=== PATIENT | female | born 1945 | race Caucasian/White ===

== ENCOUNTER 2021-07-01 18:17 | Inpatient (IN) | payer OTHER ==
[~2021-07-01] VITALS: Ht 149.9 cm; Wt 52.2 kg
[2021-07-01] MEDS ORDERED: GLIMEPIRIDE1 MG (19:02)
[2021-07-01] MEDS ORDERED: LOSARTAN POTASS25 MG (19:02)
--- NOTE | 2021-07-01 19:09 | NUR ---
PACIENTE FEMENINA, ALERTA Y ORIENTADA. REFIERE DOLOR EN ESPALDA BAJA DESDE [place]WRENCE. QUE SE IRRADIA HACIA AMBAS PIERNAS. PACIENTE REFIERE CARMONA ESTADO CON FIEBRE DESDE [place]WRENCE. SE MIDE S/V. TEMP:99.5 AL MOMENTO DEL TRIAGE. S EUBICA EN MIRELLA DE ESPERA.
--- NOTE | 2021-07-01 19:55 | NUR ---
SE EJECUTA ORDEN MEDICA EN SALDANA TOTALIDAD PACIENTE AL MOMENTO SE MANTIENE EN EPSERA DE RESULTADOS DE LABORATORIO Y ESPERA DE REALIZAR CT.
--- NOTE | 2021-07-01 19:57 | NUR ---
SE REALIZAN MUESTRAS DE BARRY POR ORDEN MEDICA Y SE ORIENTA A PACIENTE SOBRE PROCEDIMIENTO SE REALIZA ADMINISTRACION DE MEDICAMENTOS Y SE ORIENTA A PACIENTE SOBRE USO Y EFECTO.
--- NOTE | 2021-07-01 20:53 | NUR ---
SE REALIZA ADMIISTRACION DE MEDICAMNETOS POR ORDEN MEIDCA, SE ORIENTA A PACIENTE Y FAMILIAR SOBRE USO Y EFECOTS DE LOS MEDICAMENTOS A SER ADMINISTRADO .
--- NOTE | 2021-07-01 23:26 | NUR ---
PACIENTE ALERTA Y ORIENTADA X3. EN YUAN CON BARANDAS ELEVADAS. IV FLUID PATENTE Y NAYAN DE EDEMA Y ERITEMA. PACIENTE CONSULTADA CON DR. PERRY EDWARDS. SE MANTIENE BAJO OBSERVACION POR CAMBIOS SIGNIFICATIVOS.
== END 2021-07-07 09:47 | disposition home or self-care (01) | DRG 690 ==
LOC: ER 18:17 → ICU 07-02 00:10 → MEDI 07-02 00:10
PROVIDERS: ADMIT Internal Medicine; ATTEND Internal Medicine
PROC: BW21ZZZ Computerized Tomography (CT Scan) of Abdomen and Pelvis (ICD-10-PCS; 2021-07-02)
PROC: 0DJD8ZZ Inspection of Lower Intestinal Tract, Via Natural or Artificial Opening Endoscopic (ICD-10-PCS; principal; 2021-07-04)
DX: N39.0 Urinary tract infection, site not specified (principal); E87.1 Hypo-osmolality and hyponatremia; R78.81 Bacteremia; N20.0 Calculus of kidney; K74.60 Unspecified cirrhosis of liver; K52.89 Other specified noninfective gastroenteritis and colitis; D64.89 Other specified anemias; D69.49 Other primary thrombocytopenia; E86.0 Dehydration; E11.9 Type 2 diabetes mellitus without complications; I10 Essential (primary) hypertension; B96.29 Other Escherichia coli [E. coli] as the cause of diseases classified elsewhere; Z20.822 Contact with and (suspected) exposure to COVID-19; Z79.4 Long term (current) use of insulin

== ENCOUNTER 2021-10-31 23:43 | Emergency (ER) | payer OTHER ==
[~2021-10-31] VITALS: Ht 149.9 cm; Wt 53.5 kg
[~2021-10-31 23:43] MED LIST: GLIMEPIRIDE1 MG; LOSARTAN POTASS25 MG
[2021-11-01] MEDS ORDERED: IRON236 MG (00:21)
[2021-11-01] MEDS ORDERED: EMETROL ORAL S118 ML (00:21)
[2021-11-01] MEDS ORDERED: PEPCID AC20 MG PO (04:46)
[2021-11-01] MEDS ORDERED: LEVSIN0.125 MG PO (04:46)
[2021-11-01] MEDS ORDERED: INTESTINEX680 M1 PO (04:46)
== END 2021-11-01 04:50 | disposition home or self-care (01) ==
LOC: ER 23:43
DX: K52.9 Noninfective gastroenteritis and colitis, unspecified (principal); A05.9 Bacterial foodborne intoxication, unspecified; Z88.0 Allergy status to penicillin